=== PATIENT | male | born 1980 | race Caucasian/White ===

== ENCOUNTER 2019-06-05 10:39 | Emergency (ER) | payer SELFPAY ==
[2019-06-05 11:49] LABS: ABS Basophils 0.1 10^3/ul (0-0.2); ABS Eosinophils 0.1 10^3/ul (0-0.6); ABS Lymphocytes 1.8 10^3/ul (1.0-4.8); ABS Monocytes 0.8 10^3/ul (0-0.8); ABS Neutrophils 6.3 10^3/ul (1.5-7.7); ABS Nucleated RBC 0.1 10^3/ul; Eosinophil % 1.4 %; Hematocrit 44 % (42-52); Hemoglobin 15.2 g/dL (14.0-18.0); Lymphocyte % 19.7 %; Mean Corpuscular HGB Conc 34 g/dL (31-36); Mean Corpuscular Hemoglobin 31 pg (27-31); Mean Corpuscular Volume 90 fL (80-94); Mean Platelet Volume 6.6 fL (7.4-10.4); Nucleated Red Blood Cells % 0.7; Platelet Count 189 10^3/uL (150-450); Red Blood Count 4.91 10^6 /uL (4.18-5.48); Red Cell Distribution Width 15 % (10-15)
[2019-06-05 12:13] LABS: Albumin 4.8 g/dL (3.2-5.2); Albumin/Globulin Ratio 1.8 (1-3); BUN/Creatinine Ratio 13.3 (8-20); Calcium 9.7 mg/dL (8.6-10.3); EGFR Non-African American 71.9 (>60); Globulin 2.6 g/dL (2-4); Magnesium 1.8 mg/dL (1.9-2.7); Potassium 4.6 mmol/L (3.5-5.0); Total Bilirubin 0.6 mg/dL (0.2-1.0); Total Protein 7.4 g/dL (6.4-8.9)
[2019-06-05 12:53] LABS: TSH (Thyroid Stimulating Horm) 1.41 mcIU/mL (0.34-5.60)
[2019-06-05] MEDS ORDERED: clonazePAM TAB(*) 1 MG PO ONE (13:44)
[2019-06-05 15:59] VITALS: BP 137/90
--- NOTE | 2019-06-06 06:11 | ED ---
Complex/Multi-Sys Presentation - HPI Summary HPI Summary: Pt. is a 38 y.o male who presents to the ER for shaking to bilateral hands x 3 weeks. Pt. with a hx of bipolar. Pt. states he is a traveler [employer] and [place] [facility] [place] Pt. notes he was switched from depakote to vraylar about 6 weeks ago. Pt. denies weakness, h/a, slurred speech, fever, cough, CP, SOB. Symptoms are moderate in severity. No current modifying factors. Pt. notes his hand were trembling so bad today that he dropped a glass and was unable to pipet in the lab. Pt. notes he has been having increased anxiety as well. Denies SI or HI. - History Of Current Complaint Chief Complaint: EDNeurologicalDeficit Time Seen by Provider: 06/05/19 11:02 Hx Obtained From: Patient - Allergies/Home Medications Allergies/Adverse Reactions: Allergies Allergy/AdvReac Type Severity Reaction Status Date / Time No Known Allergies Allergy Verified 06/05/19 10:50 Home Medications: Home Medications Atorvastatin* [Lipitor*] 40 mg PO QPM 06/05/19 [History Confirmed 06/05/19] Atorvastatin* [Lipitor*] 40 mg PO QPM 06/05/19 [History Confirmed 06/05/19] Benztropine TAB* [Cogentin TAB*] 0.5 mg PO TID 06/05/19 [History Confirmed 06/05] Cariprazine (NF) [Vraylar (Nf)] 1.5 mg PO DAILY 06/05/19 [History Confirmed 04/16] Gabapentin CAP(*) [Neurontin 100 mg CAP(*)] 100 mg PO BID 06/05/19 [History Confirmed 06/05/19] Losartan TAB* [Cozaar TAB*] 50 mg PO QAM 06/05/19 [History Confirmed 06/05/19] busPIRone TAB* [Buspar TAB *] 15 mg PO BID 06/05/19 [History Confirmed 06/05/19] hydrOXYzine pamoate [Hydroxyzine Pamoate] 25 mg PO TID 06/05/19 [History Confirmed 06/05/19] PMH/Surg Hx/FS Hx/Imm Hx Previously Healthy: Yes Infectious Disease History: No Infectious Disease History: Denies: Traveled Outside the [place] in Last 30 Days - Family History Known Family History: Positive: Non-Contributory - Social History Occupation: Employed Full-time Lives: Alone Alcohol Use: Occasionally Substance Use Type: Reports: None Smoking Status (MU): Never Smoked Tobacco Review of Systems Constitutional: Negative Negative: Fever, Chills Eyes: Negative Cardiovascular: Negative Respiratory: Negative Gastrointestinal: Negative Skin: Negative Neurological: Other - Tingling and shaking to bilateral hands. All Other Systems Reviewed And Are Negative: Yes Physical Exam Triage Information Reviewed: Yes Vital Signs On Initial Exam: Initial Vitals Temp Pulse Resp BP Pulse Ox 96.7 F 98 18 139/114 98 06/05/19 10:46 06/05/19 10:46 06/05/19 10:46 06/05/19 10:46 06/05/19 10:46 Vital Signs Reviewed: Yes Appearance: Positive: Well-Appearing - Pt. sitting up in bed in NAD. Very anxious. Skin: Positive: Warm, Dry Head/Face: Positive: Normal Head/Face Inspection Eyes: Positive: Normal, EOMI Neck: Positive: Supple Respiratory/Lung Sounds: Positive: Clear to Auscultation, Breath Sounds Present Cardiovascular: Positive: Normal, RRR Musculoskeletal: Positive: Normal, Strength/ROM Intact, Other - Mild tremor to bilateral hands when performing a task. Hands are still at rest. Neurological: Positive: Normal, CN Intact II-III, Normal Gait, Finger to Nose - normal., Facial Symmetry, Speech Normal, Other - 5/5 strength in bilateral UEs and LEs.. Negative: Facial Droop, Slurred Speech, Ataxic Gait, Pronator Drift Present Psychiatric: Positive: Affect/Mood Appropriate Procedures - Sedation Patient Received Moderate/Deep Sedation with Procedure: No Diagnostics - Vital Signs Vital Signs Temp Pulse Resp BP Pulse Ox 06/05/19 15:58 98 F 88 18 137/90 97 06/05/19 10:46 96.7 F 98 18 139/114 98 - Laboratory Lab Results: Lab Results 06/05/19 06/05/19 Range/Units 11:41 11:41 WBC 9.0 (3.5-10.8) 10^3/uL RBC 4.91 (4.18-5.48) 10^6 /uL Hgb 15.2 (14.0-18.0) g/dL Hct 44 (42-52) % MCV 90 (80-94) fL MCH 31 (27-31) pg MCHC 34 (31-36) g/dL RDW 15 (10-15) % Plt Count 189 (150-450) 10^3/uL MPV 6.6 L (7.4-10.4) fL Neut % (Auto) 69.8 % Lymph % (Auto) 19.7 % Benzie % (Auto) 8.5 % Eos % (Auto) 1.4 % Baso % (Auto) 0.6 % Absolute Neuts (auto) 6.3 (1.5-7.7) 10^3/ul Absolute Lymphs (auto) 1.8 (1.0-4.8) 10^3/ul Absolute Monos (auto) 0.8 (0-0.8) 10^3/ul Absolute Eos (auto) 0.1 (0-0.6) 10^3/ul Absolute Basos (auto) 0.1 (0-0.2) 10^3/ul Absolute Nucleated RBC 0.1 10^3/ul Nucleated RBC % 0.7 Sodium 140 (135-145) mmol/L Potassium 4.6 (3.5-5.0) mmol/L Chloride 106 (101-111) mmol/L Carbon Dioxide 29 (22-32) mmol/L Anion Gap 5 (2-11) mmol/L BUN 15 (6-24) mg/dL Creatinine 1.13 (0.67-1.17) mg/dL Est GFR ( Amer) 87.0 (>60) Est GFR (Non-Af Amer) 71.9 (>60) BUN/Creatinine Ratio 13.3 (8-20) Glucose 110 H (70-100) mg/dL Calcium 9.7 (8.6-10.3) mg/dL Magnesium 1.8 L (1.9-2.7) mg/dL Total Bilirubin 0.60 (0.2-1.0) mg/dL AST 25 (13-39) U/L ALT 38 (7-52) U/L Alkaline Phosphatase 85 (34-104) U/L Total Protein 7.4 (6.4-8.9) g/dL Albumin 4.8 (3.2-5.2) g/dL Globulin 2.6 (2-4) g/dL Albumin/Globulin Ratio 1.8 (1-3) TSH 1.41 (0.34-5.60) mcIU/mL Result Diagrams: 06/05/19 11:41 06/05/19 11:41 Lab Statement: Any lab studies that have been ordered have been reviewed, and results considered in the medical decision making process. Complex Multi-Symp Course/Dx Course Of Treatment: Pt. presenting with complaints of bilateral hand shaking/ tremor fo 3 weeks. He has no neuro deficits or weakness on exam. Basic labs obatined and are unremarkable. Suspect his symptoms are side effects from medication. I did have the mental health team see pt. 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 Hussein and he agrees likely extrapyramidal symptoms. They made referral to [facility]. Pt. notes that he has been on klonopin in the past that has helped with his anxiety. Pt. requesting small rx. [employer] reviewed and no red flags noted. 6 tablets klonopin rx. Will have pt. schedule f.u with the [facility] as well. To return to ER if sxs change or worsen. pt. understands and agrees with plan. - Diagnoses Provider Diagnoses: Extrapyramidal symptom Discharge ED - Sign-Out/Discharge Documenting (check all that apply): Patient Departure - Discharge Plan Condition: Improved Disposition: HOME Prescriptions: clonazePAM TAB(*) [KlonoPIN TAB(*)] 1 mg PO BID #6 tab MDD 2 Patient Education Materials: Anxiety (ED), Extrapyramidal Symptoms (ED) Referrals: [facility] [Outside] Additional Instructions: Call the [facility] today to schedule a follow up appointment in 1-2 days Follow up with the mental health center as scheduled Return to ER if symptoms change or worsen - Billing Disposition and Condition Condition: IMPROVED Disposition: Home
== END 2019-06-05 15:59 | disposition home or self-care (01) ==
LOC: ED 10:44
DX: G25.9 Extrapyramidal and movement disorder, unspecified (principal); Z79.899 Other long term (current) drug therapy
CPT/HCPCS: 36415; 80053; 83735; 84443; 85025; 99284; A9270-GY